=== PATIENT | female | born 1955 | race Caucasian/White ===

== ENCOUNTER 2025-08-20 10:15 | Inpatient (IN) | payer OTHER, MEDICARE ==
[~2025-08-20] VITALS: Ht 157.5 cm; Wt 60.0 kg
[~2025-08-20 10:15] MED LIST: ATOR20TA66 PO; BUSP10TA11 PO; ESCI20TA39 PO; GUAI100L97 PO; LORA-268 PO; PANT40TA54 PO
[2025-08-20] MEDS: diazepam inj 5 MG/ML inj. ONE (11:01)
[2025-08-20] MEDS: diazepam inj 5 MG/ML inj. IV ONE ×2 (11:01→11:12)
[2025-08-20] MEDS: levetiracetam-NACL1000mg/100ml 100 ML IV SCH ×2 (11:04→11:08)
--- NOTE | 2025-08-20 11:08 | Physician Documentation ---
History of Present Illness ~ Chief Complaint: Seizure Stated Complaint: SEIZURE Time Seen by MD: 10:56 Mode of Arrival: EMS, Stretcher HPI 69-year-old female presenting with a seizure at home earlier today and is brought here by EMS. As per report the patient had a seizure which lasted several minutes at home. The patient has a history of one other seizure a couple of months ago but has not yet been fully evaluated by a neurologist. While waiting here in the emergency department patient got up to use the bathroom and once again seized again and was caught by one of our nursing staff. No other history available at this time. Medication Reconciliation Allergies: Coded Allergies: No Known Allergies (Unverified , 08/20/25) Scheduled Atorvastatin Calcium (Atorvastatin Calcium), 40 MG PO HS Buspirone Hcl* (Buspar*), 1 TAB PO Q12H, (Reported) Escitalopram Oxalate (Escitalopram Oxalate), 1 TAB PO DAILY, (Reported) Guaifenesin (Guaifenesin), 400 MG PO QID, (Reported) Pantoprazole Sodium (Pantoprazole Sodium), 1 TAB PO BID Scheduled PRN Lorazepam (Ativan), 1 TAB PO HS PRN for anxiety, (Reported) Past Medical History Patient History: Patient reports no known family medical history. Review of Systems All Other Systems at this time: Reviewed and Negative Physical Exam Vital Signs: Temperature: 96.7, Source: Oral, Heart Rate: 63, Respiratory Rate: 24, BP: 148/75, Pulse Oximetry: 95, Weight: 60.000 Oxygen Flow Rate: 0 Physical Exam I have reviewed the triage vitals. CONST: Well developed and well nourished. Somnolent. HENT: Head Atraumatic EYES: Pupils are equal, round and reactive to light. Normal conjunctiva NECK: Normal range of motion. Supple. CARDIO: Normal rate and regular rhythm. No murmurs, rubs, or gallops. S1, S2. PULM/CHEST: No respiratory distress. Lungs clear to auscultation. No wheeze ABD: Soft and nontender. Nondistended. Bowel sounds normal. No guarding. : Exam deferred MSK: No edema. No deformity. NEURO: Somnolent, postictal. SKIN: Warm and dry. PSYCH: Unable to assess due to mental status. Progress Results/Orders Results/Orders Orders - DEHKORDI,BEHRANG H MD Chest,Single View (08/20/25 10:25) Monitor (08/20/25 10:25) Saline Lock (08/20/25 10:25) Oxygen (08/20/25 10:25) Levetiracetam-[id number]/100ml (Levetira (08/20/25 11:04) Urinalysis (08/20/25 10:56) Drug Screen, Urine (08/20/25 10:56) Ct Head (08/20/25 14:29) Page Hospitalist (08/20/25 16:37) Fill Out Med Reconciliation (08/20/25 16:37) Completed Orders - GIOVANNA UPTON MD Chest,Single View (08/20/25 10:25) Cbc/Diff (08/20/25 10:25) BMP (08/20/25 10:25) PBNP (08/20/25 10:25) Electrocardiogram (08/20/25 10:25) Hs Troponin I W Calculations (08/20/25 10:25) Hs Troponin I W Calculations (08/20/25 12:25) Hs Troponin I W Calculations (08/20/25 13:25) Diazepam Inj (Valium Inj) (08/20/25 10:57) Levetiracetam-[id number]/100ml (Levetira (08/20/25 20:00) Diazepam Inj (Valium Inj) (08/20/25 11:00) Levetiracetam-Ietj2812zl/100ml (Levetira (08/20/25 11:02) Ethanol (08/20/25 10:56) Diazepam Inj (Valium Inj) (08/20/25 11:00) Levetiracetam-[id number]/100ml (Levetira (08/20/25 11:00) Normal Saline 1000ml (0.9% Sodium Chlori (08/20/25 12:20) Ct Head (08/20/25 14:29) Ondansetron Inj. (Zofran 4mg/2ml Vial) (08/20/25 16:40) Medications Received in ER Medications (Trade) Dose Ordered Sig/Rebecca Route PRN Reason Start Time Stop Time Status Last Admin Dose Admin (Valium inj) 10 mg ONCE ONCE IV 08/20/25 11:00 08/20/25 11:01 DC 08/20/25 11:01 10 MG Levetiracetam 100 ml @ 400 mls/hr Q12H IV 08/20/25 11:04 08/20/25 11:08 400 MLS/HR Sodium Chloride 1,000 ml @ 1,000 mls/hr ONCE ONCE IV 08/20/25 12:20 08/20/25 13:19 DC 08/20/25 12:54 1,000 MLS/HR (Toradol injection) 15 mg ONCE ONCE IV 08/20/25 17:15 08/20/25 17:17 DC 08/20/25 17:24 15 MG Vital Signs 08/20/25 08/20/25 08/20/25 08/20/25 10:19 10:25 10:47 11:01 Temp 96.7 Pulse 75 63 Resp 16 16 16 24 B/P (MAP) 148/75 148/75 (99) Pulse Ox 99 95 O2 Flow Rate 0 0 08/20/25 08/20/25 08/20/25 08/20/25 13:40 14:43 15:50 16:50 Pulse 70 67 73 82 Resp 16 16 16 16 B/P (MAP) 152/62 (92) 126/58 (80) 115/55 (75) 119/63 (81) Pulse Ox 100 94 96 98 O2 Flow Rate 0 0 0 0 08/20/25 17:24 Resp 16 Laboratory Tests Test 08/20/25 11:01 08/20/25 11:15 08/20/25 11:21 08/20/25 11:35 Glucometer 153 H 129 H White Blood Count 12.3 H Red Blood Count 5.05 Hemoglobin 15.0 Hematocrit 44.2 Mean Corpuscular Volume 87.5 Mean Corpuscular Hemoglobin 29.6 Mean Corpuscular Hemoglobin Concent 33.9 Red Cell Distribution Width 13.6 Platelet Count 367 Mean Platelet Volume 7.8 Neutrophils (%) (Auto) 75.3 H Lymphocytes (%) (Auto) 20.6 L Monocytes (%) (Auto) 3.3 Eosinophils (%) (Auto) 0.3 Basophils (%) (Auto) 0.5 Neutrophils # (Auto) 9.3 H Lymphocytes # (Auto) 2.5 Monocytes # (Auto) 0.4 Eosinophils # (Auto) 0.0 Basophils # (Auto) 0.1 CBC Comment Troponin I High Sensitivity 30 Sodium Level 141 Potassium Level 3.9 Chloride Level 108 H Carbon Dioxide Level 25.5 Anion Gap 8 Blood Urea Nitrogen 16 Creatinine 0.63 Estimated GFR/1.73 m2 > 90 BUN/Creatinine Ratio 25.4 H Glucose Level 119 H Calcium Level 8.9 Pro-B-Type Natriuretic Peptide 92 Albumin 3.8 Chemistry Comments Ethyl Alcohol Level < 10 Test 08/20/25 13:10 08/20/25 14:19 Troponin I High Sensitivity 32 38 Troponin I High Sens Percent Delta 6 18 Troponin I Hi Sens Absolute Change 2 6 EKG/XRAY/CT/US/VASC/MRI EKG : Additional Comment EKG as interpreted by ED MD indicating normal sinus rhythm with a rate of 70 beats per minute, no ischemia, normal axis Chest X-Ray : Additional Comments EXAM: DI CHEST,SINGLE VIEW HISTORY: CP COMPARISON: DI CHEST,SINGLE VIEW on DOS: 07/08/25 TECHNIQUE: Portable upright AP view of the chest was performed. FINDINGS: No pneumothorax, consolidative infiltrates, or pulmonary edema. There is mild central peribronchial thickening. The heart is not enlarged. The there is thoracic spondylosis and dextroscoliosis. IMPRESSION: Reactive airways disease. The lungs are otherwise clear. : Impression COMPUTERIZED TOMOGRAPHY OF THE HEAD WITHOUT CONTRAST REASON FOR STUDY: seizure COMPARISON: MR MRI HEAD on DOS: 07/09/25, CT CT HEAD on DOS: 07/08/25 TECHNIQUE: Helical tomographic scans were obtained through the brain. 2-D coronal and sagittal reformatted images are provided. Radiation optimization: All CT scans at this facility use at least one of these dose optimization techniques: Automated exposure control mA and/or kV adjustment per patient size (includes targeted exams where dose is matched to clinical indication) or iterative reconstruction. RADIATION DOSE: CTDI: 52 mGy DLP: 957 mGy-cm FINDINGS: Motion artifact degrades evaluation. No suspicious intracranial hyperdensity to suggest acute blood. There is no mass effect nor midline shift. There is mild generalized volume loss with compensatory enlargement of the CSF s paces. There is no hydrocephalus. The suprasellar cistern is intact. There are scattered periventricular and deep white matter hypodensities that are most consistent with chronic microangiopathic changes. The calvarium is intact. The visualized mastoid air cells and paranasal sinuses are clear. IMPRESSION: No acute intracranial abnormality within the limitations of motion artifact. Mild generalized volume loss with chronic small vessel ischemic change. Medical Decision Making Additional information obtaine: N/A Findings - Differential Dx:Considerations: Include: Epilepsy-break through, Epilepsy- status Additional Comment 69-year-old female presenting for a recurrent seizures. Patient had a witnessed seizure again here in the emergency department and required medication. She was given IV Valium 10 mg. She was also given a 1 g load of IV Keppra. Pacer has improved but remains very somnolent and is unable to go home at this time. She would benefit from admission for continued observation and potentially an EEG. Report called to admitting hospitalist who accepted the patient. Departure Disposition: ADMITTED INPATIENT Admitted to Inpatient Unit: to hospitalist Admission Level of Care: Med/Surg Impression: Primary Impression: Seizure disorder Referrals: NO PRIMARY CARE PROVIDER (PCP) Signature Scribe Signature: 1 Attestation: 1 GIOVANNA UPTON MD Aug 20, 2025 11:08
[2025-08-20] MEDS: levetiracetam-NACL1000mg/100ml 100 ML IV ONE (11:12)
--- NOTE | 2025-08-20 11:14 | ELECTROCARDIOGRAPH REPORT ---
[facility] Test Date: 2025-08-20 Test Time: 10:25:28 Pat Name: KI HURST Department: EMERGENCY ROOM [facility] Gender: F Defensive Secondary Coach: NIURKA : 1955 Requested By: GIOVANNA UPTON Order Number: [id number] Reading MD: Dr. Pratik Crespo Measurements Intervals [place] Rate: 70 P: 64 DE: 134 QRS: 39 QRSD: 83 T: 33 QT: 373 QTc: 403 Interpretive Statements Sinus rhythm Baseline wander in lead(s) V2 Electronically Signed On 08-24-2025 20:44:[address] Pratik Crespo Please click the below link to view image of tracing.
[2025-08-20] MEDS: levetiracetam-NACL1000mg/100ml 100 ML IV STA (11:32)
[2025-08-20 11:34] LABS: MEAN PLATELET VOLUME 7.8 FL (7.4-10.4); RED CELL DISTRIBUTION WIDTH 13.6 % (11.5-14.5)
--- NOTE | 2025-08-20 11:40 | RADIOLOGY REPORT ---
EXAM: DI CHEST,SINGLE VIEW HISTORY: CP COMPARISON: DI CHEST,SINGLE VIEW on DOS: 07/08/25 TECHNIQUE: Portable upright AP view of the chest was performed. FINDINGS: No pneumothorax, consolidative infiltrates, or pulmonary edema. There is mild central peribronchial thickening. The heart is not enlarged. The there is thoracic spondylosis and dextroscoliosis. IMPRESSION: Reactive airways disease. The lungs are otherwise clear.
[2025-08-20 11:57] LABS: CREATININE 0.63 MG/DL (0.40-0.90); PRO BRAIN NATRIURETIC PEPTIDE 92 PG/ML (0-125); TOTAL CARBON DIOXIDE 25.5 MMOL/L (24-32); eCRCL 69 ML/MIN; eGFR > 90 ML/MIN
[2025-08-20 12:20] LABS: ETHANOL < 10 MG/DL (<10)
[2025-08-20] MEDS: normal saline 1000ml 1,000 ML IV ONE (12:54)
--- NOTE | 2025-08-20 14:45 | RADIOLOGY REPORT ---
COMPUTERIZED TOMOGRAPHY OF THE HEAD WITHOUT CONTRAST REASON FOR STUDY: seizure COMPARISON: MR MRI HEAD on DOS: 07/09/25, CT CT HEAD on DOS: 07/08/25 TECHNIQUE: Helical tomographic scans were obtained through the brain. 2-D coronal and sagittal reformatted images are provided. Radiation optimization: All CT scans at this facility use at least one of these dose optimization techniques: Automated exposure control mA and/or kV adjustment per patient size (includes targeted exams where dose is matched to clinical indication) or iterative reconstruction. RADIATION DOSE: CTDI: 52 mGy DLP: 957 mGy-cm FINDINGS: Motion artifact degrades evaluation. No suspicious intracranial hyperdensity to suggest acute blood. There is no mass effect nor midline shift. There is mild generalized volume loss with compensatory enlargement of the CSF spaces. There is no hydrocephalus. The suprasellar cistern is intact. There are scattered periventricular and deep white matter hypodensities that are most consistent with chronic microangiopathic changes. The calvarium is intact. The visualized mastoid air cells and paranasal sinuses are clear. IMPRESSION: No acute intracranial abnormality within the limitations of motion artifact. Mild generalized volume loss with chronic small vessel ischemic change.
[2025-08-20] MEDS: ondansetron/PF 4mg/2ml inj IV ONE (17:08)
[2025-08-20] MEDS: ketorolac trometh 15mg/ml vial 15 MG/ML ML IV ONE (17:24)
[2025-08-20] MEDS ORDERED: bisacodyl 10mg suppository rectal RC PRN (17:25)
[2025-08-20] MEDS ORDERED: mag hydrox/Alum hydrox/simeth 30ml oral suspension PO PRN (17:25)
[2025-08-20] MEDS ORDERED: diazepam inj 5 MG/ML inj. IV PRN (17:25)
[2025-08-20] MEDS ORDERED: ondansetron/PF 4mg/2ml inj IV PRN (17:25)
[2025-08-20] MEDS ORDERED: potassium Cl 40MEQ/1/2NS 520ml 520 ML IV PRN (17:25)
[2025-08-20] MEDS ORDERED: magnesium sulf-water 4G/100mL 100 ML IV PRN (17:25)
[2025-08-20] MEDS ORDERED: potassium Cl 20 mEq SR tablet PO PRN ×2 (17:25)
[2025-08-20] MEDS ORDERED: magnesium sulf-water 2g/50mL 50 ML IV PRN (17:25)
--- NOTE | 2025-08-20 17:40 | HISTORY AND PHYSICAL ---
History & Physical Providers to CC ~ History of Present Illness Reason for Admit\Complaint: Evaluate for seizure kanbrtqm-[id number] activity History of Present Illness This is a 69-year-old female who has tardive dyskinesia after taking an antipsychotic medicine Rexulti- presents for 2nd time now to the ED with possible seizure activity. The patient had her 1st episode in July 08 of this year and had a spot EEG and MRI without any definitive diagnosis. The patient has had no further episodes until today where the patient was at home and family witnessed a seizure lasting several minutes the patient is brought to the ED and while in the emergency department the patient got up to use the restroom and once again had tonic-clonic activity that was witnessed by our nursing staff. Last episode the patient did have some bowel and bladder loss however this time the patient denies any bowel or bladder loss or biting her tongue she does not remember the episode however. The patient is complaining of headache is requesting ibuprofen for which I did offer her Toradol IV the patient does not informed me that while in the [employer] she had had a fall from 25 ft 30 years ago and had sustained a concussion and does not recall the event. A tele neurology consult is ordered along with a 24 hour EEG Keppra was started by the ED and have PRN diazepam 10 mg Q 15 minutes PRN seizure the patient received diazepam in the ED. Fall precautions, seizure precautions and neuro checks are ordered as well as physical therapy. Allergies: Coded Allergies: No Known Allergies (Unverified , 08/20/25) Home Medications Home Medications Active Pantoprazole Sodium 40 Mg Tablet.dr 1 Tab PO BID 30 Days Atorvastatin Calcium 20 Mg Tablet 40 Mg PO HS 30 Days Reported Guaifenesin 100 Mg/5 Ml Liquid 400 Mg PO QID Escitalopram Oxalate 20 Mg Tablet 1 Tab PO DAILY Ativan (Lorazepam) 0.5 Mg Tablet 1 Tab PO HS PRN Buspar* (Buspirone HCl) 10 Mg Tablet 1 Tab PO Q12H Past Medical History Past Medical History Tonic-clonic activity possible seizure June 2025 Traumatic brain injury 30 years ago PTSD Major depressive disorder Tardive dyskinesia Hyperlipidemia Past Surgical History Surgical History Comment x2 Appendectomy Hysterectomy Family History Family History: FH: diabetes mellitus Sister Sister Sister Sister Past Social History Social History Comment Lifelong nonsmoker, quit drinking alcohol two years ago, smokes a tbsp of marijuana daily, denies any illicit drug use. Full code status. ROS ROS Except for positives in the HPI the rest of the 14 point review systems is negative Exam Vitals: Vital Signs Date Time Temp Pulse Resp B/P (MAP) Pulse Ox O2 Delivery O2 Flow Rate FiO2 08/20/25 17:24 16 08/20/25 16:50 82 119/63 (81) 98 0 08/20/25 10:19 96.7 General: Gen. No acute distress alert and oriented 4 HEENT hyperkinetic activity of the jaw from [id number] Lungs clear to ascultation bilaterally, no wheezes rales or rhonchi appreciated Heart normal sinus rhythm no murmurs rubs or clicks noted Abdomen soft nontender bowel sounds are normoactive Lower extremities no clubbing cyanosis, nor edema appreciated bilaterally Diagnostic Data Last Recorded Lab Results: 08/20/25 1115 08/20/25 1121 Advance Care Planning Advanced Care plannin - 30 Minutes Problems: (1) Seizure disorder Status: Acute Additional Plan # hyperkinetic activity evaluate for seizure Received IV diazepam in the ED in his on IV Keppra PRN IV diazepam Q 15 minutes for seizures 24 hour EEG Tele neurology consult Fall precautions Seizure precautions Neuro checks Physical therapy # tardive dyskinesia # major depressive disorder # PTSD Awaiting med reconciliation # hyperlipidemia Awaiting med reconciliation # DVT prophylaxis SCDs I spent a total of 17 minutes on reviewing various resuscitative measures/ ACP with the patient at the time of admission. The patient has decided on full code status. Date of Service: Aug 20, 2025 Billing Provider: GATO GUO DO Common Visit Codes: 73032-[id number] INP/OBS CARE (HIGH) Secondary Visit Codes: [id number]-[id number] CARE PLAN 30 MINUTES GATO GUO DO Aug 20, 2025 17:40
[2025-08-20] MEDS: normal saline 1000ml 1,000 ML IV SCH (18:18)
[2025-08-20] MEDS: K and/or MAG REPLACEMENT MC SCH (20:00)
[2025-08-20] MEDS: docusate sod 100mg capsule PO SCH (20:00)
[2025-08-20 22:32] VITALS: BP 115/48; PULSE 61; RESP 14; TEMP 98.6; O2SAT 98
[2025-08-20 23:23] LABS: LEUKOCYTE ESTERASE ,URINE NEGATIVE (Neg); NITRITES, URINE NEGATIVE (Neg); OCCULT BLOOD,URINE NEGATIVE (Neg)
[2025-08-20 23:28] LABS: UA COLLECTION TYPE NON-SPECIFIED
[2025-08-20 23:29] LABS: AMORPHOUS PHOSPHATES 3+; URINE AMPHETAMINE SCREEN NEGATIVE (Neg); URINE BARBITUATE SCREEN NEGATIVE (Neg); URINE BENZODIAZEPINES SCREEN POSITIVE (Neg); URINE CANNABINOID SCREEN POSITIVE (Neg); URINE COCAINE SCREEN NEGATIVE (Neg); URINE METHADONE SCREEN NEGATIVE (Neg); URINE OPIATE SCREEN NEGATIVE (Neg); URINE PHENCYCLIDINE SCREEN NEGATIVE (Neg)
[2025-08-20 23:31] LABS: SQUAMOUS EPITHELIAL CELL,UR FEW /LPF (FEW)
[2025-08-21 06:00] VITALS: BP 100/64; PULSE 63; RESP 14; TEMP 97.9; O2SAT 98
[2025-08-21 06:04] LABS: MEAN PLATELET VOLUME 7.4 FL (7.4-10.4); RED CELL DISTRIBUTION WIDTH 13.3 % (11.5-14.5)
[2025-08-21 06:11] LABS: CREATININE 0.59 MG/DL (0.40-0.90); TOTAL CARBON DIOXIDE 26.5 MMOL/L (24-32); eCRCL 73 ML/MIN; eGFR > 90 ML/MIN
[2025-08-21 08:00] VITALS: RESP 14; O2SAT 99
--- NOTE | 2025-08-21 10:22 | [facility] CONSULT REPORT ---
[facility] Procedure Note [facility] Procedure Note Consult [facility] Note # Demographics Consult Type: General Neurology Patient Location: Inpatient First Name: Marcia Last Name: Luana Date of : 1955 Age: 69 Gender: Female Facility: [facility] Time of Initial Page (): 08/21/2025 09:41 First Contact with Site (): 08/21/2025 09:42 # HPI Chief Complaint: - seizure History: 69-year-old female with a history of tardive dyskinesia from Exalti, PTSD from a incident 30 years ago involving a fall and concussion who presents for follow-up after recent seizure activity and emergency department visit. She was initially seen in June with suspected seizure activity that included bowel and bladder loss and confusion. She was not discharged on seizure medications at that time. Yesterday, she experienced seizures at home and presented to the emergency department where tonic-clonic activity was witnessed. She was started on Keppra 1000 mg twice daily and diazepam in the emergency department. She has no history of depression. Her PTSD stems from a incident that occurred 30 years ago, which involved a fall and concussion. She has tardive dyskinesia related to taking Exalti. Head CT was negative, showing generalized volume loss and small vessel ischemic changes. MRI from June 29 was normal. Last Known Normal: - 8 AM yesterday Duration: - resolved # Scores Time of exam and NIHSS (): 08/21/2025 10:09 Level of Consciousness 1a: [0] = Alert; keenly responsive LOC Questions 1b: [0] = Answers both questions correctly LOC Commands 1c: [0] = Performs both tasks correctly Best Gaze 2: [0] = Normal Visual 3: [0] = No visual loss Facial Palsy 4: [0] = Normal symmetrical movements Motor Arm Left 5a: [0] = No drift Motor Arm Right 5b: [0] = No drift Motor Leg Left 6a: [0] = No drift Motor Leg Right 6b: [0] = No drift Limb Ataxia 7: [0] = Absent Sensory 8: [0] = Normal Best Language 9: [0] = No aphasia Dysarthria 10: [0] = Normal Extinction and Inattention 11: [0] = No abnormality NIHSS Total: 0 # Data Time Head CT personally read by me ([facility]): 08/21/2025 10:[address]: - no bleed - per radiologist read # Assessment Impression: - Seizure - Suspect likely due to TBI # Plan Thrombolytic/Intervention: NOT IV Thrombolysis or IA Intervention candidate Intraarterial Exclusion: - clinical exam not consistent with presence of large vessel occlusion (LVO), can reconsider if LVO found on vascular imaging Thrombolytic/Intraarterial Exclusion: - IV thrombolytic and IA intervention considered but not recommended as this patient's symptoms are not clinically consistent with an assumed diagnosis of stroke Diagnostic Test: - OK to do continuous EEG for 24 hours; if not able to complete this within 24 hours can discharge if no further seizures Medication: - levetiracetam (Keppra) 500 mg PO or IV every 12 hours Other: - If patient has any neurological deterioration please call me back immediately - seizure precautions - I have discussed my recommendations with the referring provider Additional Recommendations: - Recommend seizure precautions: No driving until cleared by a neurologist, per state law. No engaging in any activity that would cause additional harm or bodily or brain injury to yourself or others if you were to suddenly lose awareness or consciousness, such as swimming, bathing, climbing to heights, holding a baby, etc.s Disposition: continue admission # Logistics Attestation of consult completion: The patient is located at: [facility]. Facility staff participated in the visit. I performed this telemedicine visit from my offsite office utilizing interactive 2 way audio and visual telecommunication technology at the request of the onsite inpatient provider. Total time spent in telemedicine encounter: I spent 15 minutes reviewing clinical data and/or imaging, obtaining history, examining the patient, communicating with the onsite care team, and in preparation of this report. # Demographics First Name: Marcia Last Name: Luana Facility: [facility] Neuro Consult Order placed for: Yes DENEEN PADRON MD Aug 21, 2025 10:22
[2025-08-21 14:00] VITALS: BP 113/55; PULSE 64; RESP 16; TEMP 98.5; O2SAT 99
[2025-08-21 18:30] VITALS: BP 135/44; PULSE 65; RESP 18; TEMP 98.3; O2SAT 99
--- NOTE | 2025-08-21 19:58 | PROGRESS NOTE ---
Daily Progress Note Providers to CC ~ Antibiotic Timeout Antibiotic Ordered?: No Subjective The patient has had no further seizures- does complain of being fatigued however. Objective Vital Signs Date Time Temp Pulse Resp B/P (MAP) Pulse Ox O2 Delivery O2 Flow Rate FiO2 08/21/25 14:00 98.5 64 16 113/55 (74) 99 Room Air 08/20/25 18:01 0 Result Diagram: 08/21/2552708/21/25527 Gen. No acute distress alert and oriented 4 HEENT hyperkinetic activity of the jaw from [id number] Lungs clear to ascultation bilaterally, no wheezes rales or rhonchi appreciated Heart normal sinus rhythm no murmurs rubs or clicks noted Abdomen soft nontender bowel sounds are normoactive Lower extremities no clubbing cyanosis, nor edema appreciated bilaterally Problem\Assessment\Plan Problems/Diagnosis: (1) Seizure disorder # hyperkinetic activity evaluate for seizure Received IV diazepam in the ED in his on IV Keppra PRN IV diazepam Q 15 minutes for seizures 24 hour EEG Tele neurology consult Fall precautions Seizure precautions Neuro checks Physical therapy 08/21 tele neurology consult with Dr. Neville recommended Keppra 500 mg p.o. b.i.d. and okayed to discharge if not able to obtain 24 hour EEG the patient will not be able to drive # tardive dyskinesia # major depressive disorder # PTSD Continue Lexapro 20 mg daily # hyperlipidemia Continue atorvastatin # DVT prophylaxis SCDs Date of Service: Aug 21, 2025 Billing Provider: GATO GUO DO Common Visit Codes: [id number] INP/OBS CARE(HIGH) GATO GUO DO Aug 21, 2025 19:58
[2025-08-21 22:00] VITALS: BP 157/52; PULSE 64; RESP 16; TEMP 97.5; O2SAT 95
[2025-08-22 06:00] VITALS: BP 113/52; PULSE 63; RESP 14; TEMP 97.8; O2SAT 99
[2025-08-22 06:36] LABS: MEAN PLATELET VOLUME 7.4 FL (7.4-10.4); RED CELL DISTRIBUTION WIDTH 13.3 % (11.5-14.5)
[2025-08-22 06:53] LABS: CREATININE 0.49 MG/DL (0.40-0.90); TOTAL CARBON DIOXIDE 25.9 MMOL/L (24-32); eCRCL 88 ML/MIN; eGFR > 90 ML/MIN
[2025-08-22 07:40] VITALS: RESP 14; O2SAT 99
[2025-08-22] MEDS: ESCITALOPRAM 10 mg tablet 10 MG TABLET PO SCH (07:44)
[2025-08-22 07:48] VITALS: RESP 14; RESP 16; O2SAT 95; O2SAT 99
[2025-08-22 10:00] VITALS: BP 141/57; PULSE 56; RESP 14; TEMP 98.9; O2SAT 99
[2025-08-22] MEDS ORDERED: LEVE500T PO ×2 (13:40→13:43)
--- NOTE | 2025-08-22 20:27 | DISCHARGE SUMMARY ---
Discharge Summary Providers to CC ~ Discharge Summary Admission Diagnosis: Tonic-clonic activity evaluation for seizure Hospital Course DATE OF ADMISSION: 08/20/2025 DATE OF DISCHARGE: 08/22/2025 Discharge Diagnosis\Comment: Seizure disorder, tardive dyskinesia, major depressive disorder, PTSD, hyperlipidemia Operations\Procedures: None Consultants: Tele neurologist Complications: None Condition on DC: Stable New Medications: Levetiracetam (Levetiracetam) 500 Mg Tablet 1 TAB PO Q12H, #180 TAB 0 Refills Levetiracetam (Levetiracetam) 500 Mg Tablet 1 TAB PO Q12H, #6 TAB 0 Refills Continued Medications: Atorvastatin Calcium (Atorvastatin Calcium) 20 Mg Tablet 40 MG PO HS for 30 Days, #30 TAB Escitalopram Oxalate (Escitalopram Oxalate) 20 Mg Tablet 1 TAB PO DAILY, TAB Lorazepam (Ativan) 0.5 Mg Tablet 1 TAB PO HS PRN for anxiety, TAB 0 Refills Discharge Summary: I admitted the patient with the following HPI:This is a 69-year-old female who has tardive dyskinesia after taking an antipsychotic medicine Rexulti- presents for 2nd time now to the ED with possible seizure activity. The patient had her 1st episode in July 08 of this year and had a spot EEG and MRI without any definitive diagnosis. The patient has had no further episodes until today where the patient was at home and family witnessed a seizure lasting several min utes the patient is brought to the ED and while in the emergency department the patient got up to use the restroom and once again had tonic-clonic activity that was witnessed by our nursing staff. Last episode the patient did have some bowel and bladder loss however this time the patient denies any bowel or bladder loss or biting her tongue she does not remember the episode however. The patient is complaining of headache is requesting ibuprofen for which I did offer her Toradol IV the patient does not informed me that while in the [employer] she had had a fall from 25 ft 30 years ago and had sustained a concussion and does not recall the event. A tele neurology consult is ordered along with a 24 hour EEG Keppra was started by the ED and have PRN diazepam 10 mg Q 15 minutes PRN seizure the patient received diazepam in the ED. Fall precautions, seizure precautions and neuro checks are ordered as well as physical therapy. We are unable to obtain the [address] Neville tele neurologist had spoke with me and informed me that the patient has a prior head injury and with the history is at risk for having a seizure and recommended Keppra 500 mg p.o. b.i.d. and that if we did not obtain an EEG that would be okay. He recommended MRI however informed Dr. The patient has a MRI in June of the head which was unremarkable and thus Dr. Neville recommended that we did not need to repeat the MRI. The patient has no further episodes of seizures during hospitalization she is not able to drive until seizure-free for six months. I sent a short script to a local pharmacy and then a 90 day script to the [place] pharmacy. The patient has chronic tardive dyskinesia from prior antipsychotic use resulting however has had PTSD and depression and remains on escitalopram. The patient has hyperlipidemia remains on atorvastatin Gen. No acute distress alert and oriented 4 Heent hyperkinetic activity of the jaw Lungs clear to ascultation bilaterally, no wheezes rales or rhonchi appreciated Heart normal sinus rhythm no murmurs rubs or clicks noted Abdomen soft nontender bowel sounds are normoactive Lower extremities no clubbing cyanosis, nor edema appreciated bilaterally The patient felt ready to be discharged and was medically cleared to be discharged on 08/22/2025 The patient was seen and evaluated on day of discharge. Time spent on discharge 40 minutes *Problems/Diagnosis: (1) Seizure disorder Status: Acute Total Time Spent on D/C: > 30 Minutes Date of Service: Aug 22, 2025 Billing Provider: GATO GUO DO Common Visit Codes: 73365-MRJ/OBS DISCH DAY >30min GATO GUO DO Aug 22, 2025 20:26
== END 2025-08-22 15:00 | disposition home or self-care (01) | DRG 101 ==
LOC: ER 10:16 → ED HOLD 17:32 → EDBEDREQ 21:08 → ORTHO 4S 22:27
PROVIDERS: ADMIT Family Medicine; ATTEND Family Medicine
DX: G40.909 Epilepsy, unspecified, not intractable, without status epilepticus (principal); E78.5 Hyperlipidemia, unspecified; F32.9 Major depressive disorder, single episode, unspecified; F43.10 Post-traumatic stress disorder, unspecified; G24.01 Drug induced subacute dyskinesia; Z79.899 Other long term (current) drug therapy; Z90.710 Acquired absence of both cervix and uterus
CPT/HCPCS: 36415; 70450; 71045; 80048; 80305; 80320; 81001; 82948; 83735; 83880; 84484; 85025; 87081; 92508; 92616; 93005; 97530; 99285; A4615; G0378; J1885; J1953; J3360; J7030